=== PATIENT | male | born 1940 | race Caucasian/White ===

== ENCOUNTER → 2017-10-25 | Day surgery (SDC) | payer MEDICARE, BC ==
[2017-10-23 10:10] LABS: BASOPHILS # (AUTO) 0.1 (0.0-0.1); BASOPHILS % 0.7 % (0.0-1.0); EOSINOPHILS # (AUTO) 0.2 (0.0-0.4); EOSINOPHILS % 1.7 % (0.0-6.0); HEMATOCRIT 50.2 % (38.2-49.6); HEMOGLOBIN 16.3 g/dL (14.0-18.0); MEAN CORPUSCULAR HEMOGLOBIN 30.3 pg (28-32); MEAN CORPUSCULAR HGB CONC 32.5 g/dL (31-35); MEAN CORPUSCULAR VOLUME 93.3 fL (81-99); MONOCYTES # (AUTO) 1.3 (0.2-0.8); MONOCYTES % 12.6 % (4.4-11.3); NEUTROPHILS # (AUTO) 5.5 (2.1-6.9); NEUTROPHILS % 54.2 % (38.7-80.0); PLATELET COUNT 251 x10e3/uL (140-360); RED BLOOD COUNT 5.38 x10e6/uL (4.3-5.7); RED CELL DISTRIBUTION WIDTH 13.7 % (11.7-14.4)
[2017-10-23 10:24] LABS: INR 1.06
[2017-10-23 10:30] LABS: ALANINE AMINOTRANSFERASE 12 IU/L (0-55); ALBUMIN 4.2 g/dL (3.5-5.0); ALBUMIN/GLOBULIN RATIO 1.4 (0.8-2.0); ALKALINE PHOSPHATASE 90 IU/L (40-150); ANION GAP 12.5 mmol/L (8-16); BLOOD UREA NITROGEN 17 mg/dL (7-26); BUN/CREATININE RATIO 16 (6-25); CALCIUM 10.2 mg/dL (8.4-10.2); CARBON DIOXIDE 30 mmol/L (22-29); CHLORIDE 108 mmol/L (98-107); CREATININE, SERUM 1.06 mg/dL (0.72-1.25); EST GLOMERULAR FILTRATION RATE > 60 ML/MIN (60-); GLUCOSE 105 mg/dL (74-118); POTASSIUM 5.5 mmol/L (3.5-5.1); SODIUM 145 mmol/L (136-145)
--- NOTE | 2017-10-23 10:50 | Diagnostic Imaging Report ---
PROCEDURE:X-RAY ABDOMEN - KUB COMPARISON:None. INDICATIONS:BLADDER STONE FINDINGS: The bowel gas pattern shows no dilated, air-filled loops of bowel. Gas and fecal material are noted throughout the large bowel. No mass effect or organomegaly. There are multiple rounded calcifications projecting over the pelvis ranging in size from 2 mm to 7 mm in no calcifications project over the renal shadows or expected ureteral courses. Radiopaque suture material in the left upper quadrant. Regional skeletal structures are intact. Thoracic spinal fusion hardware is partially visualized. CONCLUSION: multiple ovoid pelvic calcifications ranging in size from 2-7 mm. These may represent phleboliths or calculi within the urinary bladder per clinical history. Dictated by: Phill Benitez M.D. on 10/23/2017 at 10:53 Electronically approved by: Phill Benitez M.D. on 10/23/2017 at 10:53
--- NOTE | 2017-10-23 10:53 | Diagnostic Imaging Report ---
PROCEDURE: X-RAY CHEST, TWO VIEWS COMPARISON: 05/14 2017. INDICATIONS: BALLDER STONE SURGERY FINDINGS: The lungs remain well inflated. No focal airspace consolidation, pleural effusion, or pneumothorax. Stable cardiomediastinal contour with tortuosity of the thoracic aorta. Normal heart size. No pulmonary edema. No acute osseous abnormality. Stable thoracic spinal fusion hardware. Posttraumatic deformity of the posterior right fifth rib is unchanged. Unchanged chronic anterior compression deformity of upper lumbar vertebral body. CONCLUSION: No acute thoracic abnormality. Dictated by: Phill Benitez M.D. on 10/23/2017 at 10:55 Electronically approved by: Phill Benitez M.D. on 10/23/2017 at 10:55
[~2017-10-25] MED LIST: AUGMENTIN 875-1 EACH PO; CEFOXITIN SOD 1 GM VIAL ONE; CREON DR 6,000 U1 EA PO; DEXAMETHASONE SOD PHOS INJ 4 MG/ML VIAL ONE; FENTANYL CITRATE/PF 100MCG/2 ML INJ ONE; FINASTERIDE5 MG PO; GABAPENTIN300 MG PO; HYDRALAZINE HCL10 MG PO; KEFLEX500 MG PO; LIDOCAINE HCL 2% LOCAL INJ 5 ML SDV VIAL INJ ONE; LISINOPRIL2.5 MG PO; LISINOPRIL5 MG; MACROBID 100 M100 MG PO; METFORMIN HCL850 MG PO; MIDAZOLAM HCL 2 MG/2 ML VIAL ONE; OCTREOTIDE INJ; ONDANSETRON HCL INJ 2 MG/ML VIAL ONE; PROPOFOL IV EMULSION 10 MG/ML 20 ML VIAL ONE; SEVOFLURANE INHAL SOLN 250 ML PEN BTL ONE; SIMVASTATIN10 MG PO; TAMSULOSIN HCL0.4 MG PO; ULTRAM50 MG PO
--- OUTSIDE RECORDS SUMMARY | 2017-10-25 08:15 | XMS REPORT ---
Author Author [facility] Address Unknown Phone Unavailable Care Team Providers Care Lending Advisor Name Role Phone ALLISON BROWER Unavailable Unavailable Problems This patient has no known problems. Allergies, Adverse Reactions, Alerts This patient has no known allergies or adverse reactions. Medications This patient has no known medications. Results Test Description Test Time Test Comments Text Results Atomic Results Result Comments ABDOMEN-1VIEW (KUB) [place] [address] Patient Name: RUDY BRUNER MR #: [id number] : 1940 Age/Sex: 77/M Req #: [id number] Adm Physician: Ordered by: ALLISON BROWER MD Report #: [id number] Location: OR Room/Bed: Procedure: [id number] DX/ABDOMEN-1VIEW (KUB) Exam Date: 10/23/17 Exam Time: 1020 REPORT STATUS: Signed PROCEDURE: X-RAY ABDOMEN - KUB COMPARISON: None. INDICATIONS: BLADDER STONE FINDINGS: The bowel gas pattern shows no dilated, air-filled loops of bowel. Gas and fecal material are noted throughout the large bowel. No mass effect or organomegaly. There are multiple rounded calcifications projecting over the pelvis ranging in size from 2 mm to 7 mm in no calcifications project over the renal shadows or expected ureteral courses. Radiopaque suture material in the left upper quadrant. Regional skeletal structures are intact. Thoracic spinal fusion hardware is partially visualized. CONCLUSION: multiple ovoid pelvic calcifications ranging in size from 2-7 mm. These may represent phleboliths or calculi within the urinary bladder per clinical history. Dictated by: Valeria Silvestre M.D. on 10/23/2017 at 10:53 Electronically approved by: Valeria Silvestre M.D. on 10/23/2017 at 10 :53 Dictated By: VALERIA SILVESTRE MD 105 Transcribed By: DAMI on 10/23/17 1053 COPY TO: ALLISON BROWER MD CHEST 2 VIEWS [place] [address] Patient Name: RUDY BRUNER MR #: [id number] : 1940 Age/Sex: 77/M Req #: [id number] Adm Physician: Ordered by: ALLISON BROWER MD Report #: [id number] Location: OR Room/Bed: Procedure: [id number] DX/CHEST 2 VIEWS Exam Date: 10/23/17 Exam Time: 1020 REPORT STATUS: Signed PROCEDURE: X-RAY CHEST, TWO VIEWS COMPARISON: 05/14 2017. INDICATIONS: BALLDER STONE SURGERY FINDINGS: The lungs remain well inflated. No focal airspace consolidation, pleural effusion, or pneumothorax. Stable cardiomediastinal contour with tortuosity of the thoracic aorta. Normal heart size. No pulmonary edema. No acute osseous abnormality. Stable thoracic spinal fusion hardware. Posttraumatic deformity of the posterior right fifth rib is unchanged. Unchanged chronic anterior compression deformity of upper lumbar vertebral body. CONCLUSION: No acute thoracic abnormality. Dictated by: Valeria Silvestre M.D. on 10/23/2017 at 10:55 Electronically approved by: Valeria Silvestre M.D. on 10/23/2017 at 10:55 Dictated By: VALERIA SILVESTRE MD 1055 Transcribed By: DAMI on 10/23/17 1055 COPY TO: ALLISON BROWER MD CHEST 2 VIEWS [place] [address] Patient Name: RUDY BRUNER MR #: [id number] : 1940 Age/Sex: 76/M Req #: [id number] Adm Physician: Ordered by: ALLISON BROWER MD Report #: [id number] Location: OR Room/Bed: Procedure: [id number] DX/CHEST 2 VIEWS Exam Date: 05/15/17 Exam Time: 1155 REPORT STATUS: Signed PROCEDURE: Frontal and lateral views of the chest. COMPARISON: None. INDICATIONS: PRE-OPERATIVE CHEST X- RAY FOR PROSTATE SURGERY FINDINGS: Lines/tubes: None. Lungs: The lungs are well inflated and clear. There is no evidence of pneumonia or pulmonary edema. Pleura: There is no pleural effusion or pneumothorax. Heart and mediastinum: The heart and the mediastinum are normal. Bones: No acute bony abnormality. Stable Paz rods and intrapedicular screws in the upper and midthoracic spine IMPRESSION: 1. No acute cardiopulmonary abnormalities. Cody Mock M.D. Dictated by: Cody Mock M.D. on 05/15/2017 at 13:10 Electronically approved by: Cody Mock M.D. on 05/15/2017 at 13:10 Dictated By: CODY MOCK MD [id number] Transcribed By: DAMI on 05/15/17 9642 COPY TO: ALLISON BROWER MD
--- NOTE | 2017-10-25 12:31 | Operative Report ---
DATE OF PROCEDURE: October 25, 2017 PREOPERATIVE DIAGNOSIS: Bladder calculus. POSTOPERATIVE DIAGNOSIS: Benign prostatic hypertrophy with obstruction, decreased force of stream and urinary tract infection. OPERATION PERFORMED: Cystoscopy and evacuation of blood clots. ANESTHESIA: General. INDICATIONS: This patient is a 77-year-old white male with pancreatic cancer. I saw him back in May when he was in urinary retention. He had a GreenLight laser photovaporization of the prostate performed. The patient initially did very well with his urination in terms of having a good stream, but he had problems with frequent infections afterwards. He then came to see me in September, stating that he was having a good stream all along and then all of a sudden it shut down and was no longer a good stream. I did a flexible cystoscopy in the office, and that revealed evidence of about a 1.5 cm bladder calculus and I had initially pushed it back into the urethra, back in the prostatic urethra to back in the bladder and he was scheduled today for a cystoscopy with Holmium laser lithotripsy. For further details, please refer to the history and physical and cystoscopy report. The procedure was done in the following fashion. DESCRIPTION OF PROCEDURE: The patient was taken to the operating room, placed under general anesthesia and dressed and draped with Betadine in lithotomy position in the usual fashion. A preliminary scan of the abdomen with the C-arm revealed numerous pelvic calcifications. The 22-[place] Olympus cystoscope was inserted with the 30-degree oblique lens. No urethral strictures were encountered. The sphincter and verumontanum were intact. There was a moderate amount of regrown prostatic adenoma present, but the bladder neck was wide open. There was debris and blood clots present in the bladder and I used the Ellik evacuator to get that out, and as I inspected the bladder, I could see that there was severe trabeculation and the bladder was severely inflamed, suggesting an infection, but the stone that I had identified previously was no longer there. So, my assumption is that the patient must have passed it spontaneously between the time of his last office visit and today. I also inspected the bladder with the 70-degree oblique lens as well to make sure that I was not missing a stone and a diverticulum or anything like that, and the bladder was free of stones at this time but there were some blood clots and tissue present and I evacuated that with the Ellik and sent some of it to pathology for identification. The bladder was emptied and the cystoscope withdrawn. The patient tolerated the procedure well and left the operating room in good condition. I am planning to send him home on Augmentin 875 mg 1 p.o. twice daily for 10 days. He will have a return appointment to see me again in 2 weeks. If he continues to have severe problems with urination, I may have to go back for a resection of additional tissue from his gigantic prostate. Job#: [id number] EV
== END | disposition home or self-care (01) ==
LOC: OR 08:12
PROVIDERS: ATTEND Urology
DX: N21.0 Calculus in bladder (principal); N40.1 Benign prostatic hyperplasia with lower urinary tract symptoms; N13.8 Other obstructive and reflux uropathy; R39.12 Poor urinary stream; R35.0 Frequency of micturition; R39.15 Urgency of urination; R97.20 Elevated prostate specific antigen [PSA]; N52.1 Erectile dysfunction due to diseases classified elsewhere; C25.7 Malignant neoplasm of other parts of pancreas; N32.89 Other specified disorders of bladder; J44.9 Chronic obstructive pulmonary disease, unspecified; E11.9 Type 2 diabetes mellitus without complications; I10 Essential (primary) hypertension; I45.6 Pre-excitation syndrome; E78.00 Pure hypercholesterolemia, unspecified; K42.9 Umbilical hernia without obstruction or gangrene; Z01.810 Encounter for preprocedural cardiovascular examination; Z01.812 Encounter for preprocedural laboratory examination; Z01.818 Encounter for other preprocedural examination; Z88.8 Allergy status to other drugs, medicaments and biological substances; Z91.041 Radiographic dye allergy status; Z91.013 Allergy to seafood; Z98.890 Other specified postprocedural states
CPT/HCPCS: 36415 ×2; 52001; 71046; 74018; 76000; 80053; 82948; 84132; 85025; 85610; 85730; 88305; 93005; J0694; J1100; J2001; J2250; J2405